=== PATIENT | female | born 1940 | race Two or more races ===

== ENCOUNTER → 2019-04-08 | Outpatient (CLI) | payer MEDICARE, OTHER ==
--- NOTE | 2019-04-11 01:12 | XCELERA REPORT ---
[address] [address] Lower Extremity Arterial Evaluation Name: KEO CHAMPION Age: 78 yrs Gender: Female : 1940 Patient Status: Outpatient Patient Location: Study Date: 04/08/2019 09:08 AM Procedure: A color flow and duplex scan of the lower extremity arteries was performed bilaterally with velocity and waveform anaylsis. Reason For Study: PVD Ordering Physician: RAMU GRAMAJO Performed By: Panda Cross Measurements and Calculations Right Left PIT TANNER PSV 124.1 100.6 cm/sec Prox PFA PSV -62.1 -66.4 cm/sec Prox SFA PSV 74.4 81.5 cm/sec Mid SFA PSV -100.6 -111.0cm/sec Dist SFA PSV -81.0 -87.1 cm/sec Prox Pop A PSV 70.7 67.3 cm/sec Dist JESUS ALBERTO PSV 68.4 66.8 cm/sec Dist [employer] PSV 102.5 100.4 cm/sec Param Pedis PSV 23.6 35.5 cm/sec Right Side Arterial Evaluation Normal velocity and triphasic waveforms noted from the Common Femoral artery to the infrageniculate vessels. Biphasic with low velocity in the Dorsalis Pedis arteries. Ankle Brachial index is not obtainable, due to non compressible vessels.. Left Side Arterial Evaluation Normal velocity and triphasic waveforms noted from the Common Femoral artery to the infrageniculate vessels. Biphasic with low velocity in the Dorsalis Pedis arteries. Ankle Brachial index is 1.25. Interpretation Summary Mild hemodynamically significant lesions in the bilateral lower extremities, on duplex imaging, at rest. Very slight arteria changes in the Dorsalis Pedis, bilaterally. Normal ROSEANN on the left, supports normal arterial finding. 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 : RAMU GRAMAJO > Rudi Jackson
== END ==
LOC: SP 08:32
PROVIDERS: ATTEND Podiatrist Foot & Ankle Surgery
DX: I73.9 Peripheral vascular disease, unspecified (principal)
CPT/HCPCS: 93925

== ENCOUNTER → 2020-11-27 | Outpatient (CLI) | payer MEDICARE, OTHER ==
[~2020-11-27] MED LIST: COVID-19 VACCINE (PFIZER)/PF 30 MCG/0.3 ML VIAL IM ONE; EPINEPHRINE INJ/PF 1 MG/1 ML AMPULE IM PRN
== END ==
LOC: EMPHEALTH 11:45
PROVIDERS: ATTEND Internal Medicine
DX: Z23 Encounter for immunization (principal)
CPT/HCPCS: 91300